=== PATIENT | male | born 1995 | race Caucasian/White ===

== ENCOUNTER 2017-06-01 14:25 | Emergency (ER) | payer BC ==
--- NOTE | 2017-06-01 14:59 | EDM.PDOC ---
<Ludmila Wallace - Last Filed: 06/01/17 15:48> ED HPI GENERAL MEDICAL PROBLEM - General Chief Complaint: Bite:Animal, Insect Stated Complaint: INSECT BITE ON LEG Time Seen by Provider: 06/01/17 14:50 Source of Information: Reports: Patient History Limitations: Reports: No Limitations - History of Present Illness INITIAL COMMENTS - FREE TEXT/NARRATIVE: Patient is a 21 YO male who presents today due to redness on the proximal inner right thigh. He first noticed this 3 days ago. There is now pain associated with this. Describes the pain as burning and stinging and states the pain is starting to spread in a circular distribution around the area. He does report mild nausea. He does not remember being bit by an insect or spider. He reports a similar episode 2 months ago a little distal to the current location. He was able to pop it open and drain the puss and it has now healed. He denies fever, chills, vomiting. He does not a headache but reports that this is a chronic issue for him and has not gotten worse over the past week or so. Right Leg Pain Score (Numeric/FACES): 8 - Related Data Allergies Allergy/AdvReac Type Severity Reaction Status Date / Time No Known Allergies Allergy Verified 06/01/17 14:46 Home Meds: Home Meds Doxycycline [Vibramycin] 100 mg PO BID #20 cap 06/01/17 [Rx] Past Medical History - Past Health History Medical/Surgical History: Denies Medical/Surgical History Social & Family History - Tobacco Use Smoking Status *Q: Current Every Day Smoker Years of Tobacco use: 15 Packs/Tins Daily: 1 - Caffeine Use Caffeine Use: Reports: Soda - Recreational Drug Use Recreational Drug Use: No ED ROS GENERAL - Review of Systems Review Of Systems: See Below Constitutional: Reports: No Symptoms Respiratory: Reports: No Symptoms Cardiovascular: Reports: No Symptoms GI/Abdominal: Reports: No Symptoms : Reports: No Symptoms Musculoskeletal: Reports: Joint Pain (chronic) Skin: Reports: Erythema (see HPI) Neurological: Reports: No Symptoms Psychiatric: Reports: No Symptoms ED EXAM, ANIMAL BITE - Physical Exam Exam: See Below Exam Limited By: No Limitations General Appearance: Alert, WD/WN, No Apparent Distress Eye Exam: Bilateral Eye: EOMI, PERRL Respiratory/Chest: No Respiratory Distress Skin Exam: Other (area of erythema 2 inches in diameter, apears to be a blood blister in the middle with a small white head on the inner proximal thigh) ED ANIMAL BITE PROCEDURES - Additional/Other Procedure(s) Other (Free Text) Procedure(s): 20 gauge needle was used to puncture the center so culture could be collected Course - Vital Signs Last Recorded V/S: Last Vital Signs Temp 36.2 C 06/01/17 14:45 Pulse 76 06/01/17 14:45 Resp 20 06/01/17 14:45 BP 120/78 06/01/17 14:45 Pulse Ox 98 06/01/17 14:45 Departure - Departure Disposition: Home, Self-Care 01 Clinical Impression: Cellulitis Qualifiers: Site of cellulitis: extremity Site of cellulitis of extremity: lower extremity Laterality: right Qualified Code(s): L03.115 - Cellulitis of right lower limb - Discharge Information Prescriptions: Doxycycline [Vibramycin] 100 mg PO BID #20 cap Instructions: Cellulitis, Adult, [id number] Referrals: Lorrie Olsen PA [Primary Care Provider] - Forms: ED Department Discharge Additional Instructions: Take the doxycycline 1 Twice a day for 10 days. Take this with food. Recommend yogurt or probiotic to reduce side effects of upset stomach, nausea and diarrhea. Doxycycline is photosensitive. If you are outside make sure you are wearing sunscreen. Expect the cellulitis to get a little worse before it gets better. If you experience severe worsening of the cellulitis, fevers, chills, worsening nausea or vomiting. Return to the ER or the clinic. [id number] Tylenol or Motrin seen for pain. Recommend using a warm compress to 3-5 times a day for 10-15 minutes. Follow-up with family medicine if your symptoms do not improve within 2 weeks. Recommend guerline Tracy or Ariela Muñiz at the [facility]. Call [phone] schedule the provider there. Please return to the ER if your symptoms change or worsen. <Dee Cullen - Last Filed: 06/03/17 11:13> ED HPI GENERAL MEDICAL PROBLEM - History of Present Illness INITIAL COMMENTS - FREE TEXT/NARRATIVE: I have seen the patient and agree with the HPI as documented by MOOKIE BenitezS. ED EXAM, ANIMAL BITE - Physical Exam Respiratory/Chest: No Respiratory Distress, Lungs Clear, Normal Breath Sounds Cardiovascular: Normal Peripheral Pulses, Regular Rate, Rhythm, No Murmur Neurological: Alert, Oriented, Normal Cognition Psychiatric: Normal Affect, Normal Mood Skin Exam: Normal Color, Warm/Dry Course - Re-Assessments/Exams Free Text/Narrative Re-Assessment/Exam: 06/01/17 15:31 I've seen the patient and agree with the history of present illness, review of systems and physical exam is documented by JORY Benitez. Obtained a culture from the are cleaning the area with alcohol swab and then puncturing the purulent area with an 18-gauge needle. Able to express only a small amount of purulent material. Culture sent. We'll place on antibiotic. Discharge instructions as documented. Departure - Departure Time of Disposition: 15:38 Condition: Good
== END 2017-06-01 16:00 | disposition home or self-care (01) ==
LOC: JD.ED 14:25
DX: L03.115 Cellulitis of right lower limb (principal); F17.210 Nicotine dependence, cigarettes, uncomplicated
CPT/HCPCS: 10021; 87070; 87077; 87186; 99283; 99283-25

== ENCOUNTER 2021-01-11 09:56 | Emergency (ER) | payer SELFPAY ==
[2021-01-11] MEDS ORDERED: Ketorolac 60 MG/2 ML SDV IM ONE (11:10)
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
--- NOTE | 2021-01-11 13:08 | CR ---
Right forearm: 2 views of the right forearm were obtained. Comparison: No prior forearm study is available. Joint spaces within the wrist and elbow are preserved. No fracture or other bony abnormality is appreciated. Impression: 1. Nothing acute is seen on 2-view right forearm study. Diagnostic code #1
--- NOTE | 2021-01-11 13:08 | CR ---
Right humerus: 2 views of the right humerus were obtained. Comparison: No prior humerus studies available. Shoulder joint and elbow joint show no discrete abnormality. No fracture or other abnormality is appreciated. Impression: 1. Nothing acute is seen on 2-view right humerus study. Diagnostic code #1
== END 2021-01-11 12:35 | disposition home or self-care (01) ==
LOC: JD.ED 09:56
DX: S50.01XA Contusion of right elbow, initial encounter (principal); S50.11XA Contusion of right forearm, initial encounter; Z72.0 Tobacco use; W22.09XA Striking against other stationary object, initial encounter
CPT/HCPCS: 73060; 73090; 96372; 99283; J1885

== ENCOUNTER 2021-06-13 22:08 | Emergency (ER) | payer BC ==
[2021-06-13] MEDS ORDERED: Sodium Chloride 0.9% 10 ML SDV FLUSH ONE (23:43)
[2021-06-13] MEDS ORDERED: Iopamidol 755 Mg/ML 100 ML Bottle IVPUSH ONE (23:43)
[2021-06-13 23:45] LABS: CORONAVIRUS COVID-19 NAA NEGATIVE (NEGATIVE)
[2021-06-13] MEDS ORDERED: Sodium Chloride 0.9% 100 ML IV SCH (23:45)
== END 2021-06-14 01:23 | disposition home or self-care (01) ==
LOC: JD.ED 22:08
DX: R04.2 Hemoptysis (principal); J34.89 Other specified disorders of nose and nasal sinuses; Z20.822 Contact with and (suspected) exposure to COVID-19
CPT/HCPCS: 36415; 71046; 71275; 80053; 85025; 85379; 85610; 85730; 87502; 87635; 99285; J3490; Q9967; U0002

== ENCOUNTER 2021-07-14 22:35 | Emergency (ER) | payer BC ==
[2021-07-15] MEDS ORDERED: Potassium Chloride 20 MEQ Tab.ER PO ONE (02:37)
[2021-07-15] MEDS ORDERED: Cephalexin 500 MG Cap PO ONE (02:37)
== END 2021-07-15 02:50 | disposition home or self-care (01) ==
LOC: JD.ED 22:35
DX: L03.115 Cellulitis of right lower limb (principal); L03.116 Cellulitis of left lower limb; Z79.899 Other long term (current) drug therapy; Z86.16 Personal history of COVID-19
CPT/HCPCS: 36415; 80053; 85025; 85379; 93970; 99284; A9270

== ENCOUNTER 2022-09-06 17:23 | Emergency (ER) | payer SELFPAY | END 2022-09-06 18:29 | disposition home or self-care (01) | LOC: JD.ED 17:23 | DX: L03.112 Cellulitis of left axilla (principal); Z86.16 Personal history of COVID-19 | CPT/HCPCS: 99282 ==

== ENCOUNTER 2022-09-10 14:19 | Emergency (ER) | payer SELFPAY ==
[2022-09-10] MEDS ORDERED: Ondansetron 4 MG/2 ML SDV IVPUSH ONE (15:40)
[2022-09-10] MEDS ORDERED: Sodium Chloride 0.9% 10 ML Syringe FLUSH PRN ×2 (15:40→15:54)
[2022-09-10] MEDS ORDERED: Sodium Chloride 0.9% 1,000 ML IV ONE (15:40)
[2022-09-10] MEDS ORDERED: Iopamidol 612 MG/ML 100 ML Bottle IVPUSH ONE (15:54)
[2022-09-10 16:50] LABS: BASOPHILS ABSOLUTE AUTO 0.06 K/mm3 (0.01-0.08); BASOPHILS PERCENT AUTO 0.6 % (0.1-1.2); EOSINOPHILS ABSOLUTE AUTO 0.43 K/mm3 (0.04-0.54); EOSINOPHILS PERCENT AUTO 4.1 (0.8-7.0); HEMATOCRIT 46.7 % (40.1-51.0); HEMOGLOBIN 16.2 gm/dl (13.7-17.5); IMMATURE GRAN ABSOLUTE AUTO 0.02 K/mm3 (0.00-0.10); IMMATURE GRAN PERCENT AUTO 0.2 % (<=1.0); LYMPHOCYTES ABSOLUTE AUTO 3.82 K/mm3 (1.32-3.57); LYMPHOCYTES PERCENT AUTO 36.1 % (21.8-53.1); MEAN CORPUSCULAR HEMOGLOBIN 32.8 pg (25.7-32.2); MEAN CORPUSCULAR HGB CONC 34.7 g/dl (32.2-35.5); MEAN CORPUSCULAR VOLUME 94.5 fl (79.0-92.2); MEAN PLATELET VOLUME 10.2 fl (9.4-12.3); MONOCYTES ABSOLUTE AUTO 0.87 K/mm3 (0.30-0.82); MONOCYTES PERCENT AUTO 8.2 % (5.3-12.2); NEUTROPHILS ABSOLUTE AUTO 5.38 K/mm3 (1.78-5.38); NEUTROPHILS PERCENT AUTO 50.8 % (34.0-67.9); PLATELET COUNT,PLT 334 K/mm3 (163-337); RED BLOOD CELL COUNT 4.94 M/mm3 (4.63-6.08); WHITE BLOOD CELL COUNT,WBC 10.58 K/mm3 (4.23-9.07)
[2022-09-10 16:59] LABS: A/G RATIO 0.9 (1-2); ALBUMIN 3.8 g/dl (3.4-5.0); ANION GAP 12.7 (5-15); BUN/CREATININE RATIO 11.8 (14-18); C-REACTIVE PROTEIN 1.8 mg/dL (<1.0); CALCIUM 9.2 mg/dL (8.5-10.1); CREATININE 1.1 mg/dL (0.7-1.3); EST CRCL DRUG DOSING (CG) 91.83 mL/min; MAGNESIUM 1.7 mg/dL (1.8-2.4); POTASSIUM,K 4.7 mEq/L (3.5-5.1); PROTEIN TOTAL,TP 8.2 g/dl (6.4-8.2)
[2022-09-10 17:41] LABS: APPEARANCE,URINE CLEAR (Clear); BILIRUBIN,URINE NEGATIVE (Negative); COLOR,URINE YELLOW (Yellow); GLUCOSE,URINE NEGATIVE (Negative); KETONES,URINE NEGATIVE (Negative); LEUKOCYTE ESTERASE,URINE NEGATIVE (Negative); NITRITE,URINE NEGATIVE (Negative); OCCULT BLOOD,URINE NEGATIVE (Negative); PH,URINE 6.5 (5.0-8.0); PROTEIN,URINE NEGATIVE (Negative); UROBILINOGEN,URINE 0.2 (0.2-1.0)
[2022-09-10 17:47] LABS: BACTERIA,URINE FEW /hpf (FEW); MUCUS,URINE FEW /hpf (FEW); RBC,URINE 0-5 /hpf (0-5); SQUAMOUS EPITHELIAL CELLS,UR NOT SEEN /hpf (0-5); WBC,URINE 0-5 /hpf (0-5)
== END 2022-09-10 18:04 | disposition home or self-care (01) ==
LOC: JD.ED 14:19
DX: R10.9 Unspecified abdominal pain (principal); Z86.16 Personal history of COVID-19; Z88.8 Allergy status to other drugs, medicaments and biological substances
CPT/HCPCS: 36415; 74177; 80053; 81001; 83690; 83735; 85025; 86140; 96374; 99284; J2405; J3490; J7030; Q9967; 99283

== ENCOUNTER 2023-01-15 15:11 | Emergency (ER) | payer SELFPAY ==
[2023-01-15] MEDS ORDERED: ClonazePAM 0.5 MG Tab PO ONE ×3 (17:01→19:13)
[2023-01-15] MEDS ORDERED: Sodium Chloride 0.9% 10 ML Syringe FLUSH PRN (17:03)
[2023-01-15] MEDS ORDERED: Sodium Chloride 0.9% 1,000 ML IV ONE (17:03)
[2023-01-15 17:35] LABS: BASOPHILS ABSOLUTE AUTO 0.1 K/mm3 (0.0-0.2); BASOPHILS PERCENT AUTO 0.6 % (0.0-1.0); EOSINOPHILS ABSOLUTE AUTO 0.1 K/mm3 (0.0-0.4); EOSINOPHILS PERCENT AUTO 1.2 % (0.0-6.0); HEMOGLOBIN 16.5 gm/dl (14.0-18.0); IMMATURE GRAN ABSOLUTE AUTO 0.02 K/mm3 (0.00-0.05); IMMATURE GRAN PERCENT AUTO 0.2 % (0.0-0.4); LYMPHOCYTES ABSOLUTE AUTO 1.9 K/mm3 (1.0-4.8); MEAN CORPUSCULAR HEMOGLOBIN 33.2 pg (28.0-32.0); MEAN CORPUSCULAR HGB CONC 35.9 g/dl (32.0-36.0); MEAN CORPUSCULAR VOLUME 92.6 fl (83.0-99.0); MEAN PLATELET VOLUME 9.7 fl (9.4-12.4); MONOCYTES ABSOLUTE AUTO 0.5 K/mm3 (0.0-0.8); MONOCYTES PERCENT AUTO 5.5 % (0.0-8.0); NEUTROPHILS ABSOLUTE AUTO 5.8 K/mm3 (1.8-7.7); NEUTROPHILS PERCENT AUTO 69.5 % (41.0-71.0); PLATELET COUNT,PLT 236 K/mm3 (150-400); RED BLOOD CELL COUNT 4.97 M/mm3 (4.52-5.90); WHITE BLOOD CELL COUNT,WBC 8.38 K/mm3 (3.9-11.3)
[2023-01-15 18:11] LABS: A/G RATIO 1.1 (1-2); ALBUMIN 4.5 g/dl (3.4-5.0); ANION GAP 15.7 (5-15); BILIRUBIN TOTAL 1.2 mg/dL (0.2-1.0); BUN/CREATININE RATIO 8.2 (14-18); CALCIUM 9.7 mg/dL (8.5-10.1); CREATININE 1.1 mg/dL (0.7-1.3); EST CRCL DRUG DOSING (CG) 91.83 mL/min; POTASSIUM,K 4.7 mEq/L (3.5-5.1); PROTEIN TOTAL,TP 8.7 g/dl (6.4-8.2)
== END 2023-01-15 19:30 | disposition home or self-care (01) ==
LOC: JD.ED 15:11
DX: T43.592A Poisoning by other antipsychotics and neuroleptics, intentional self-harm, initial encounter (principal); F20.1 Disorganized schizophrenia; G24.01 Drug induced subacute dyskinesia; F10.129 Alcohol abuse with intoxication, unspecified
CPT/HCPCS: 36415; 80053; 80143; 80179; 83735; 85025; 96374; 99284; A9270; J3360; J3490; J7030; 99283

== ENCOUNTER 2023-11-08 14:21 | Emergency (ER) | payer SELFPAY ==
[2023-11-08 15:16] LABS: BASOPHILS ABSOLUTE AUTO 0.1 K/mm3 (0.0-0.2); BASOPHILS PERCENT AUTO 0.4 % (0.0-1.0); EOSINOPHILS ABSOLUTE AUTO 0.1 K/mm3 (0.0-0.4); EOSINOPHILS PERCENT AUTO 0.6 % (0.0-6.0); HEMATOCRIT 47.1 % (42.0-52.0); HEMOGLOBIN 16.7 gm/dl (14.0-18.0); IMMATURE GRAN ABSOLUTE AUTO 0.04 K/mm3 (0.00-0.05); IMMATURE GRAN PERCENT AUTO 0.3 % (0.0-0.4); LYMPHOCYTES ABSOLUTE AUTO 3.6 K/mm3 (1.0-4.8); LYMPHOCYTES PERCENT AUTO 26.5 % (24.0-44.0); MEAN CORPUSCULAR HEMOGLOBIN 30.9 pg (28.0-32.0); MEAN CORPUSCULAR HGB CONC 35.5 g/dl (32.0-36.0); MEAN CORPUSCULAR VOLUME 87.2 fl (83.0-99.0); MEAN PLATELET VOLUME 9.3 fl (9.4-12.4); MONOCYTES PERCENT AUTO 7.5 % (0.0-8.0); NEUTROPHILS ABSOLUTE AUTO 8.8 K/mm3 (1.8-7.7); NEUTROPHILS PERCENT AUTO 64.7 % (41.0-71.0); PLATELET COUNT,PLT 324 K/mm3 (150-400); WHITE BLOOD CELL COUNT,WBC 13.54 K/mm3 (3.9-11.3)
[2023-11-08 15:16] LABS: BARBITURATE SCREEN,URINE NEGATIVE (CUTOFF=200); BENZODIAZEPINES SCREEN,URINE NEGATIVE (CUTOFF=150); BUPRENORPHINE SCREEN,URINE NEGATIVE (CUTOFF=10); METHADONE SCREEN, URINE NEGATIVE (CUT0FF=200); METHAMPHETAMINES SCREEN, URINE NEGATIVE (CUTOFF=500); OXYCODONE SCREEN,URINE NEGATIVE (CUT0FF=100); THC SCREEN,URINE 20 NG/ML NEGATIVE (CUTOFF=50)
[2023-11-08 15:17] LABS: AMPHETAMINES SCREEN, URINE NEGATIVE (CUTOFF=500)
[2023-11-08 15:45] LABS: A/G RATIO 1.3 (1-2); ALBUMIN 4.7 g/dl (3.4-5.0); ANION GAP 16.6 (5-15); BILIRUBIN TOTAL 1.8 mg/dL (0.2-1.0); CALCIUM 9.5 mg/dL (8.5-10.1); EST CRCL DRUG DOSING (CG) 103.74 mL/min; MAGNESIUM 1.7 mg/dL (1.8-2.4); POTASSIUM,K 3.6 mEq/L (3.5-5.1); PROTEIN TOTAL,TP 8.4 g/dl (6.4-8.2); TSH 1.964 uIU/mL (0.358-3.74)
[2023-11-08] MEDS: Magnesium Oxide 400 MG Tab PO ONE (17:32)
== END 2023-11-08 17:05 | disposition critical access hospital (66) ==
LOC: JD.ED 14:21
DX: F29 Unspecified psychosis not due to a substance or known physiological condition (principal); Z86.16 Personal history of COVID-19; Z79.899 Other long term (current) drug therapy; Z88.8 Allergy status to other drugs, medicaments and biological substances
CPT/HCPCS: 36415; 80053; 80143; 80179; 80306; 80307; 83735; 84443; 85025; 99285

== ENCOUNTER 2024-03-11 16:48 | Emergency (ER) | payer MEDICAID ==
[2024-03-11 19:06] LABS: BASOPHILS PERCENT AUTO 0.4 % (0.0-1.0); EOSINOPHILS ABSOLUTE AUTO 0.1 K/mm3 (0.0-0.4); EOSINOPHILS PERCENT AUTO 0.9 % (0.0-6.0); HEMATOCRIT 52.4 % (42.0-52.0); HEMOGLOBIN 18.1 gm/dl (14.0-18.0); IMMATURE GRAN ABSOLUTE AUTO 0.03 K/mm3 (0.00-0.05); IMMATURE GRAN PERCENT AUTO 0.3 % (0.0-0.4); LYMPHOCYTES PERCENT AUTO 27.9 % (24.0-44.0); MEAN CORPUSCULAR HEMOGLOBIN 31.4 pg (28.0-32.0); MEAN CORPUSCULAR HGB CONC 34.5 g/dl (32.0-36.0); MEAN CORPUSCULAR VOLUME 90.8 fl (83.0-99.0); MEAN PLATELET VOLUME 9.2 fl (9.4-12.4); MONOCYTES ABSOLUTE AUTO 0.8 K/mm3 (0.0-0.8); MONOCYTES PERCENT AUTO 7.7 % (0.0-8.0); NEUTROPHILS ABSOLUTE AUTO 6.8 K/mm3 (1.8-7.7); NEUTROPHILS PERCENT AUTO 62.8 % (41.0-71.0); PLATELET COUNT,PLT 292 K/mm3 (150-400); RED BLOOD CELL COUNT 5.77 M/mm3 (4.52-5.90); WHITE BLOOD CELL COUNT,WBC 10.84 K/mm3 (3.9-11.3)
[2024-03-11 19:17] LABS: APPEARANCE,URINE CLEAR (Clear); BILIRUBIN,URINE 1+ (Negative); COLOR,URINE YELLOW (Yellow); GLUCOSE,URINE NEGATIVE (Negative); KETONES,URINE NEGATIVE (Negative); LEUKOCYTE ESTERASE,URINE NEGATIVE (Negative); NITRITE,URINE NEGATIVE (Negative); OCCULT BLOOD,URINE NEGATIVE (Negative); PH,URINE 6.5 (5.0-8.0); PROTEIN,URINE 1+ (Negative); UROBILINOGEN,URINE 0.2 (0.2-1.0)
[2024-03-11 19:24] LABS: BACTERIA,URINE FEW /hpf (FEW); BARBITURATE SCREEN,URINE NEGATIVE (CUTOFF=200); BENZODIAZEPINES SCREEN,URINE NEGATIVE (CUTOFF=150); BUPRENORPHINE SCREEN,URINE NEGATIVE (CUTOFF=10); METHADONE SCREEN, URINE NEGATIVE (CUT0FF=200); METHAMPHETAMINES SCREEN, URINE PRESUMPTIVE POSITIVE (CUTOFF=500); OXYCODONE SCREEN,URINE NEGATIVE (CUT0FF=100); RBC,URINE 0-5 /hpf (0-5); SQUAMOUS EPITHELIAL CELLS,UR 0-5 /hpf (0-5); THC SCREEN,URINE 20 NG/ML PRESUMPTIVE POSITIVE (CUTOFF=50); WBC,URINE 0-5 /hpf (0-5)
[2024-03-11 19:25] LABS: MUCUS,URINE MANY /hpf (FEW)
[2024-03-11 19:26] LABS: AMPHETAMINES SCREEN, URINE PRESUMPTIVE POSITIVE (CUTOFF=500)
[2024-03-11 19:52] LABS: A/G RATIO 1.1 (1-2); ALBUMIN 4.6 g/dl (3.4-5.0); ANION GAP 17.1 (5-15); BILIRUBIN TOTAL 1.4 mg/dL (0.2-1.0); BUN/CREATININE RATIO 13.3 (14-18); CALCIUM 9.7 mg/dL (8.5-10.1); CREATININE 0.9 mg/dL (0.7-1.3); EST CRCL DRUG DOSING (CG) 115.27 mL/min; MAGNESIUM 1.7 mg/dL (1.8-2.4); POTASSIUM,K 4.1 mEq/L (3.5-5.1); PROTEIN TOTAL,TP 8.8 g/dl (6.4-8.2)
== END 2024-03-11 20:01 ==
LOC: JD.ED 16:48
DX: Z02.89 Encounter for other administrative examinations (principal); Z86.16 Personal history of COVID-19; Z90.89 Acquired absence of other organs; Z88.8 Allergy status to other drugs, medicaments and biological substances; Z79.899 Other long term (current) drug therapy
CPT/HCPCS: 36415; 80053; 80306; 81001; 83735; 84484; 85025; 93005; 99283

== ENCOUNTER 2024-07-23 16:59 | Emergency (ER) | payer MEDICAID | END 2024-07-23 17:37 | disposition home or self-care (01) | LOC: JD.ED 16:59 | DX: Z02.89 Encounter for other administrative examinations (principal); Z79.899 Other long term (current) drug therapy; Z88.8 Allergy status to other drugs, medicaments and biological substances; Z86.16 Personal history of COVID-19 | CPT/HCPCS: 99282; 99284 ==